=== PATIENT | female | born 1935 | race Caucasian/White ===

== ENCOUNTER 2017-11-04 05:20 | Day surgery (SDC) | payer OTHER ==
[~2017-11-04 05:20] MED LIST: CALAN SR 120MG120 MG PO; GABAPENTIN100 MG PO; NAMENDA10 MG PO; RIVASTIGMINE4.5 MG PO; SYNTHROID50 MCG PO; ZESTRIL40 M1 PO
[2017-11-04] MEDS ORDERED: MACROBID 100 M100 MG PO (09:28)
[2017-11-04] MEDS ORDERED: ULTRACET PO (09:28)
== END 2017-11-04 11:15 | disposition home or self-care (01) ==
LOC: CIR.AMB 05:20
DX: N81.11 Cystocele, midline (principal); N81.6 Rectocele; N81.5 Vaginal enterocele